=== PATIENT | female | born 1955 | race Caucasian/White ===

== ENCOUNTER 2016-10-09 14:10 | Emergency (ER) | payer MEDICAID ==
[~2016-10-09] VITALS: Ht 152.4 cm; Wt 80.0 kg
[2016-10-09] MEDS ORDERED: SODIUM CHLORIDE 0.9% 1,000 ML IV ONE (14:39)
[2016-10-09] MEDS ORDERED: MORPHINE SULFATE 4 MG/ML CPJ (NOT FOR IM USE) IV ONE (14:45)
[2016-10-09] MEDS ORDERED: ONDANSETRON HCL 4MG/2ML VIAL IV ONE (14:45)
[2016-10-09] MEDS ORDERED: MECLIZINE 25MG TABLET PO ONE (14:45)
[2016-10-09 15:10] LABS: BASOPHILS % 1.1 % (0.0-2.0); EOSINOPHILS % 0.2 % (0.0-5.0); HEMATOCRIT. 42.3 % (36.0-48.0); HEMOGLOBIN. 14.2 g/dL (12.0-16.0); LYMPHOCYTES % 13.4 % (20.0-50.0); MEAN CORPUSCULAR HGB CONC 33.7 g/dL (31.0-37.0); MEAN CORPUSCULAR VOLUME 95.1 fL (81.0-99.0); MEAN PLATELET VOLUME 8.7 fl (7.4-10.4); MONOCYTES % 6.3 % (2.0-8.0); PLATELET 285 x1000/uL (130-400); RED BLOOD CELL COUNT 4.44 mill/uL (4.2-5.4); WHITE BLOOD COUNT 12.5 x1000/uL (4.5-11.0)
[2016-10-09 15:12] LABS: PROTHROMBIN TIME 10.7 sec
[2016-10-09 15:18] VITALS: BP 132/74
[2016-10-09 15:23] LABS: ALANINE AMINOTRANSFERASE 58 IU/L (13-61); ALBUMIN 3.7 g/dL (3.4-5.0); ANION GAP 17; CALCIUM 9.1 mg/dL (8.5-10.1); CARBON DIOXIDE 26 mEq/L (21-32); CHLORIDE 100 mEq/L (98-107); ETHANOL BLOOD < 10 mg/dL; INDEX HEMOLYSI 1 (1-3); INDEX ICTERIC 1 (1-4); INDEX LIPEMIC 1 (1-3); NT PRO B-TYPE NATRIURETIC PEP 47 pg/mL (5-125); TROPONIN I < 0.02 ng/mL (0.00-0.04); UREA NITROGEN BLOOD 14 mg/dL (7-21); eGFR 56 mL/min (>60)
[2016-10-09 16:37] LABS: CLARITY URINE CLEAR (CLEAR); COLOR URINE YELLOW (YELLOW); GLUCOSE URINE NEGATIVE (NEGATIVE); KETONES URINE NEGATIVE (NEGATIVE); LEUKOCYTE ESTERASE URINE NEGATIVE (NEGATIVE); NITRITE URINE NEGATIVE (NEGATIVE); OCCULT BLOOD URINE NEGATIVE (NEGATIVE); PROTEIN URINE NEGATIVE (NEGATIVE); UROBILINOGEN URINE 0.2 E.U./dL (0.2-1.0)
[2016-10-09 17:00] LABS: *AMPHETAMINES SCREEN URINE NEGATIVE (NEGATIVE); *BARBITURATES SCREEN URINE NEGATIVE (NEGATIVE); *BENZODIAZEPINES SCREEN URINE NEGATIVE (NEGATIVE); *COCAINE SCREEN URINE NEGATIVE (NEGATIVE); CANNABINOID URINE SCREEN NEGATIVE (NEGATIVE); ECSTASY MDMA SCREEN URINE NEGATIVE (NEGATIVE); METHADONE URINE SCREEN NEGATIVE (NEGATIVE); OPIATES URINE SCREEN PRESUMTIVE POSITIVE (NEGATIVE); PHENCYCLIDINE URINE SCREEN NEGATIVE (NEGATIVE)
== END 2016-10-09 17:41 | disposition home or self-care (01) ==
LOC: ER 14:24
DX: R51 Headache (principal); R42 Dizziness and giddiness
CPT/HCPCS: 36415; 70450; 71010; 80053; 80305; 81003; 83880; 84443; 84484; 85025; 85610; 85651; 93005; 96361; 96374; 96375; 99285; G0482; J2270; J2405; J7030; J8597